=== PATIENT | female | born 1955 | race Caucasian/White ===

== ENCOUNTER → 2016-12-18 | Outpatient (CLI) | payer OTHER ==
[~2016-12-18] MED LIST: TRAMADOL 50 MG50 MG PO
== END ==
LOC: RAD 12-17 08:35
DX: Z12.31 Encounter for screening mammogram for malignant neoplasm of breast (principal)

== ENCOUNTER → 2019-01-02 | Outpatient (CLI) | payer OTHER | LOC: RAD 12-31 12:40 → BC 11:47 | DX: Z12.31 Encounter for screening mammogram for malignant neoplasm of breast (principal) ==

== ENCOUNTER → 2020-04-06 | Outpatient (CLI) | payer OTHER | LOC: BC 02-23 14:29 | PROVIDERS: ATTEND Internal Medicine | DX: Z12.31 Encounter for screening mammogram for malignant neoplasm of breast (principal) ==

== ENCOUNTER → 2021-05-24 | Outpatient (CLI) | payer OTHER | LOC: BC 05-16 11:27 | PROVIDERS: ATTEND Internal Medicine | DX: Z12.31 Encounter for screening mammogram for malignant neoplasm of breast (principal); N64.89 Other specified disorders of breast ==